=== PATIENT | male | born 1975 | race Two or more races ===

== ENCOUNTER 2021-07-20 13:45 | Outpatient (CLI) | payer OTHER | END 2021-07-20 13:58 | disposition home or self-care (01) | LOC: MRI 13:45 | DX: M71.21 Synovial cyst of popliteal space [Baker], right knee (principal); M25.461 Effusion, right knee; S83.241A Other tear of medial meniscus, current injury, right knee, initial encounter; M25.561 Pain in right knee | CPT/HCPCS: 73721 ==